=== PATIENT | female | born 1985 | race Caucasian/White ===

== ENCOUNTER 2016-09-21 05:08 | Emergency (ER) | payer OTHER ==
[~2016-09-21] VITALS: Ht 157.5 cm; Wt 90.7 kg
[2016-09-21 05:08] VITALS: BP 129/70; PULSE 86; RESP 18; TEMP 97.6; O2SAT 98
--- NOTE | 2016-09-21 05:08 | NUR ---
Placed in room 04 . To gown for exam. Side rails up. Report given to RUFUS Fritz.
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
--- NOTE | 2016-09-21 05:20 | NUR ---
ER Dr. Rose at bedside examining patient.
--- NOTE | 2016-09-21 05:30 | NUR ---
Written and verbal consent obtained from patient for blood alcohol, name and verified by patient. Disinfected patient's skin with iodine that did not contain alcohol or other volatile organic compound. Collected the blood from the subject named by venipuncture, in the presence of Officer with badge [id number]. Used a sterile, dry hypodermic needle and dry vacuum blood collection. The dry vacuum blood collection was supplied by the officer named above. Withdrew a specimen of blood from L AC of the subject named above. Inverted the blood tube several times to ensure that the preservative and anticoagulant were thoroughly mixed in the blood specimen. I initialed the blood tube label for identification. The labeled blood tube was handed directly to the Officer named above. The blood tube stopper remained in place while I had possession of the blood tube. The Officer placed tube into envelope and sealed it in my presence. Envelope initialed by myself and Officer named above. Patient tolerated well, bandage applied, and bleeding controlled.
[2016-09-21 05:32] VITALS: BP 129/70; PULSE 86; RESP 18; TEMP 97.6; O2SAT 98
--- NOTE | 2016-09-21 05:32 | NUR ---
Patient given written and verbal discharge instructions and verbalizes understanding. ER MD discussed with patient the results and treatment provided. Patient in stable condition. ID arm band removed. Patient educated on pain management and to follow up with PMD. Pain Scale 4/10. Opportunity for questions provided and answered.
== END 2016-09-21 05:32 ==
LOC: SED 05:08
DX: Z02.83 Encounter for blood-alcohol and blood-drug test (principal); J45.909 Unspecified asthma, uncomplicated
CPT/HCPCS: 99283